=== PATIENT | female | born 2000 | race Caucasian/White ===

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

== ENCOUNTER 2023-08-22 18:33 | Inpatient (IN) | payer MEDICAID, OTHER ==
[2023-08-22] MEDS ORDERED: SODIUM CHLORIDE 0.9% 1,000 ML IV STA (18:54)
[2023-08-22 20:03] LABS: Basophils # (A) 0.1 k/uL (0-0.2); Basophils % (A) 1 %; Eosinophils # (A) 0.1 k/uL (0-0.7); Eosinophils % (A) 1 %; HCT 43.7 % (34.0-46.0); HGB 15.1 gm/dL (11.4-16.0); Lymphocytes # (A) 2.2 k/uL (1.0-4.8); Lymphocytes % (A) 22 %; MCH 32.3 pg (25.0-35.0); MCHC 34.6 g/dL (31.0-37.0); MCV 93.3 fL (80.0-100.0); Monocytes # (A) 0.6 k/uL (0-1.0); Monocytes % (A) 6 %; Neutrophils # (A) 6.7 k/uL (1.3-7.7); Neutrophils % (A) 68 %; Platelet Count 265 k/uL (150-450); RBC 4.69 m/uL (3.80-5.40); RDW 11.9 % (11.5-15.5); WBC 9.9 k/uL (3.8-10.6)
[2023-08-22 20:06] LABS: Appearance,Urine Cloudy (Clear); Bacteria,Urine Rare /hpf; Bilirubin,Urine Negative (Negative); Blood,Urine Negative (Negative); Color,Urine Light Yellow; Glucose,Urine (UA) Negative (Negative); Ketones,Urine Negative (Negative); Leukocyte Esterase,Urine Negative (Negative); Mucus,Urine Few /hpf; Nitrite,Urine Negative (Negative); Protein,Urine Trace (Negative); RBC,Urine 1 /hpf (0-5); Specific Gravity,Urine 1.025 (1.001-1.035); Squamous Epithelial Cell,Urine 13 /hpf (0-4); Urobilinogen,Urine <2.0 mg/dL (<2.0); WBC,Urine 2 /hpf (0-5)
[2023-08-22 20:16] LABS: Amphetamine Screen,Urine Not Detected (NotDetected); Barbiturate Screen,Urine Not Detected (NotDetected); Benzodiazepines Screen,Urine Not Detected (NotDetected); Cocaine Screen,Urine Not Detected (NotDetected); Methadone Screen, Urine Not Detected (NotDetected); Opiate Screen,Urine Not Detected (NotDetected); Oxycodone Screen, Urine Not Detected (NotDetected); Phencyclidine Screen,Urine Not Detected (NotDetected); Tricyclic Antidepressant,Urine Not Detected (NotDetected); Urn Cannabinoid Scrn Detected (NotDetected)
[2023-08-22 20:18] LABS: ALT 13 U/L (4-34); AST 18 U/L (14-36); Acetaminophen <10.0 ug/mL; African American GFR (CKD) >90 (>60 ml/min/1.73 sqM); Albumin 4.4 g/dL (3.5-5.0); Alcohol <10 mg/dL; Alkaline Phosphatase 55 U/L (38-126); Anion Gap 10 mmol/L; Blood Urea Nitrogen 18 mg/dL (7-17); Calcium 9.3 mg/dL (8.4-10.2); Carbon Dioxide 25 mmol/L (22-30); Chloride 105 mmol/L (98-107); Glucose 82 mg/dL (74-99); Lithium 0.5 mmol/L; Non-African American GFR(CKD) 90 (>60 ml/min/1.73 sqM); Potassium 3.8 mmol/L (3.5-5.1); Salicylate <1.0 mg/dL; Sodium 140 mmol/L (137-145); Total Bilirubin 0.9 mg/dL (0.2-1.3); Total Protein 7.1 g/dL (6.3-8.2)
--- NOTE | 2023-08-22 20:18 | ED ---
Overdose HPI - General Source: patient Mode of arrival: ambulatory Limitations: no limitations <Rosaura Zamorano - Last Filed: 08/22/23 20:47> <Adrian Ballesteros - Last Filed: 08/23/23 15:17> - General Chief Complaint: Overdose Stated Complaint: Overdose/mental health Time Seen by Provider: 08/22/23 18:53 - History of Present Illness Initial Comments: 23-year-old female who identifies as a male presents to the emergency department after overdose on Abilify, lithium and Effexor. Patient states that at 6 PM this evening he took 8-10 tablets of Abilify 10 mg, around 15-20 tablets of lithium 300 mg and 15 tablets of Effexor XR 75 mg. Patient these medications in an attempt to harm himself. Admits to previous history of attempt with hospitalization. Reports that they have not taken their lithium as directed o brissa the past month and therefore has excess bottles of it at home. These medications are prescribed to him. He denies any drug or alcohol abuse. No concern for . No other alleviating, precipitating or modifying factors (Rosaura Zamorano) - Related Data Home Medications Medication Instructions Recorded Confirmed ARIPiprazole [Abilify] 10 mg PO DAILY 08/22/23 08/22/23 [place] Carbonate 600 mg PO HS 08/22/23 08/22/23 Testosterone [Androgel 1.62%] 2 pump TRANSDERM DAILY 08/22/23 08/22/23 Venlafaxine HCl [Effexor XR] 75 mg PO DAILY 08/22/23 08/22/23 Allergies Allergy/AdvReac Type Severity Reaction Status Date / Time banana Allergy Anaphylaxis Verified 08/22/23 18:46 grass pollen Allergy sneezing Verified 08/22/23 18:46 mustard Allergy Anaphylaxis Verified 08/22/23 18:46 Review of Systems ROS Other: All systems not noted in ROS Statement are negative. <Rosaura Zamorano - Last Filed: 08/22/23 20:47> ROS Other: All systems not noted in ROS Statement are negative. <Adrian Ballesteros - Last Filed: 08/23/23 15:17> ROS Statement: Those systems with pertinent positive or pertinent negative responses have been documented in the HPI. Past Medical History Past Medical History: Seizure Disorder Additional Past Medical History / Comment(s): Bipolar. Obstetric history: First was a spontaneous . This is her second . Blood type A+, antibodies negative, HIV nonreactive, rubella immune, RPR nonreactive. Hepatitis B negative, negative quad screen, negative toxoplasmosis. History of Any Multi-Drug Resistant Organisms: None Reported Past Surgical History: No Surgical Hx Reported Past Anesthesia/Blood Transfusion Reactions: No Reported Reaction Past Psychological History: ADD/ADHD, Anxiety, Bipolar Smoking Status: Never smoker Past Alcohol Use History: None Reported Past Drug Use History: Marijuana - Past Family History Mother Family Medical History: No Reported History <JaunRosaura Nadiya - Last Filed: 08/22/23 20:47> General Exam Limitations: no limitations General appearance: alert, in no apparent distress Head exam: Present: atraumatic, normocephalic, normal inspection Eye exam: Present: normal appearance, PERRL, EOMI. Absent: scleral icterus, conjunctival injection, periorbital swelling ENT exam: Present: normal exam, mucous membranes moist Neck exam: Present: normal inspection. Absent: tenderness, meningismus, lymphadenopathy Respiratory exam: Present: normal lung sounds bilaterally. Absent: respiratory distress, wheezes, rales, rhonchi, stridor Cardiovascular Exam: Present: regular rate, normal rhythm, normal heart sounds. Absent: systolic murmur, diastolic murmur, rubs, gallop, clicks GI/Abdominal exam: Present: soft, normal bowel sounds. Absent: distended, tenderness, guarding, rebound, rigid Extremities exam: Present: normal inspection, full ROM, normal capillary refill. Absent: tenderness, pedal edema, joint swelling, calf tenderness Back exam: Present: normal inspection Neurological exam: Present: alert, oriented X3, CN II-XII intact Psychiatric exam: Present: suicidal ideation Skin exam: Present: warm, dry, intact, normal color. Absent: rash <Rosaura Zamorano - Last Filed: 08/22/23 20:47> Course Vital Signs 08/22/23 08/22/23 08/23/23 18:42 22:31 01:00 Temperature 99.0 F Pulse Rate 100 98 76 Respiratory 18 18 Rate Blood Pressure 122/74 132/85 O2 Sat by Pulse 99 98 Oximetry 08/23/23 08/23/23 04:00 08:31 Temperature 98 F Pulse Rate 93 68 Respiratory 18 16 Rate Blood Pressure 118/75 105/70 O2 Sat by Pulse 99 98 Oximetry Medical Decision Making - Lab Data Result diagrams: 08/22/23 19:29 08/22/23 19:29 <JaunRosaura Nadiya - Last Filed: 08/22/23 20:47> - Lab Data Result diagrams: 08/22/23 19:29 08/22/23 19:29 <Adrian Ballesteros - Last Filed: 08/23/23 15:17> - Medical Decision Making Was pt. sent in by a medical professional or institution (, OZIEL, MAIL SUPERINTENDENT, urgent care, hospital, or detention...) When possible be specific @ -No Did you speak to anyone other than the patient for history (EMS, parent, family, police, friend...)? What history was obtained from this source @ -No Did you review nursing and triage notes (agree or disagree)? Why? @ -I reviewed and agree with nursing and triage notes Were old charts reviewed (outside hosp., previous admission, EMS record, old EKG, old radiological studies, urgent care reports/EKG's, detention records)? Report findings @ -No old charts were reviewed Differential Diagnosis (chest pain, altered mental status, abdominal pain women, abdominal pain men, vaginal bleeding, weakness, fever, dyspnea, syncope, headache, dizziness, GI bleed, back pain, seizure, CVA, palpatations, mental health, musculoskeletal)? @ -not applicable EKG interpreted by me (3pts min.). @ -Yes and demonstrates sinus rhythm with a rate of 84. CO interval 160. QRS 98. QTC 390. No acute ST segment elevations or depressions X-rays interpreted by me (1pt min.). @ -None done CT interpreted by me (1pt min.). @ -None done U/S interpreted by me (1pt. min.). @ -None done What testing was considered but not performed or refused? (CT, X-rays, U/S, labs)? Why? @ -None What meds were considered but not given or refused? Why? @ -None Did you discuss the management of the patient with other professionals (professionals i.e. , OZIEL, MAIL SUPERINTENDENT, lab, RT, psych nurse, social media campaign manager, housekeeping/laundry supervisor, teacher, development officer, protective services case worker)? Give summary @ -No Was smoking cessation discussed for >3mins.? @ -No Was critical care preformed (if so, how long)? @ -No Were there social determinants of health that impacted care today? How? (Homelessness, low income, unemployed, alcoholism, drug addiction, transportation, low edu. Level, literacy, decrease access to med. care, alf, rehab)? @ -No Was there de-escalation of care discussed even if they declined (Discuss DNR or withdrawal of care, Hospice)? DNR status @ -No What co-morbidities impacted this encounter? (DM, HTN, Smoking, COPD, CAD, Cancer, CVA, ARF, Chemo, Hep., AIDS, mental health diagnosis, sleep apnea, morbid obesity)? @ -None Was patient admitted / discharged? Hospital course, mention meds given and route, prescriptions, significant lab abnormalities, going to OR and other pertinent info. @ -Upon arrival patient is placed into room 14. A thorough history and physical exam was performed. IV is established and laboratory studies were conducted. [place] level is 0.5. Poison control does recommend repeat lithium level in 4 hours. This will be conducted at 1 AM. If lithium level is supratherapeutic on the patient will require further medical care. If level is within normal limits the patient may be medically cleared Undiagnosed new problem with uncertain prognosis? @ -No Drug Therapy requiring intensive monitoring for toxicity (Heparin, Nitro, Insuli n, Cardizem)? @ -No Were any procedures done? @ -No Diagnosis/symptom? @ -default Acute, or Chronic, or Acute on Chronic? @ -default Uncomplicated (without systemic symptoms) or Complicated (systemic symptoms)? @ -default Side effects of treatment? @ -No Exacerbation, Progression, or Severe Exacerbation? @ -No Poses a threat to life or bodily function? How? (Chest pain, [place], [place], pneumonia, PE, COPD, DKA, ARF, appy, cholecystitis, CVA, Diverticulitis, Homicidal, Suicidal, threat to staff... and all critical care pts) @ -No (Rosaura Zamorano) Was patient admitted / discharged? Hospital course, mention meds given and route, prescriptions, significant lab abnormalities, going to OR and other pertinent info. @ -Patient was signed out to me I will back in the room and reevaluated the patient and patient did state he was trying to kill himself and I did fill out a clinical certification after the psychiatric nurse filled out a petition Undiagnosed new problem with uncertain prognosis? @ -No Drug Therapy requiring intensive monitoring for toxicity (Heparin, Nitro, Insulin, Cardizem)? @ -No Were any procedures done? @ -No Diagnosis/symptom? @ -Depression Acute, or Chronic, or Acute on Chronic? @ -Acute Uncomplicated (without systemic symptoms) or Complicated (systemic symptoms)? @ -Complicated Side effects of treatment? @ -No Exacerbation, Progression, or Severe Exacerbation? @ -No Poses a threat to life or bodily function? How? (Chest pain, [place], [place], pneumonia, PE, COPD, DKA, ARF, appy, cholecystitis, CVA, Diverticulitis, Homicidal, Suicidal, threat staff... and all critical care pts) @ -Yes this completes his suicide Diagnosis/symptom? @ -Suicidal attempt Acute, or Chronic, or Acute on Chronic? @ -Acute Uncomplicated (without systemic symptoms) or Complicated (systemic symptoms)? @ -Complicated Side effects of treatment? @ -none Exacerbation, Progression, or Severe Exacerbation] @ -no Poses a threat to life or bodily function? @ -Yes this could lead to (Adrian Ballesteros) - Lab Data Lab Results 08/22/23 08/22/23 08/22/23 Range/Units 19:29 19:29 19:32 WBC 9.9 (3.8-10.6) k/uL RBC 4.69 (3.80-5.40) m/uL Hgb 15.1 (11.4-16.0) gm/dL Hct 43.7 (34.0-46.0) % MCV 93.3 (80.0-100.0) fL MCH 32.3 (25.0-35.0) pg MCHC 34.6 (31.0-37.0) g/dL RDW 11.9 (11.5-15.5) % Plt Count 265 (150-450) k/uL MPV 8.0 Neutrophils % 68 % Lymphocytes % 22 % Monocytes % 6 % Eosinophils % 1 % Basophils % 1 % Neutrophils # 6.7 (1.3-7.7) k/uL Lymphocytes # 2.2 (1.0-4.8) k/uL Monocytes # 0.6 (0-1.0) k/uL Eosinophils # 0.1 (0-0.7) k/uL Basophils # 0.1 (0-0.2) k/uL Sodium 140 (137-145) mmol/L Potassium 3.8 (3.5-5.1) mmol/L Chloride 105 (98-107) mmol/L Carbon Dioxide 25 (22-30) mmol/L Anion Gap 10 mmol/L BUN 18 H (7-17) mg/dL Creatinine 0.91 (0.52-1.04) mg/dL Est GFR (CKD-EPI)AfAm >90 (>60 ml/min/1.73 sqM) Est GFR (CKD-EPI)NonAf 90 (>60 ml/min/1.73 sqM) Glucose 82 (74-99) mg/dL Calcium 9.3 (8.4-10.2) mg/dL Total Bilirubin 0.9 (0.2-1.3) mg/dL AST 18 (14-36) U/L ALT 13 (4-34) U/L Alkaline Phosphatase 55 (38-126) U/L Total Protein 7.1 (6.3-8.2) g/dL Albumin 4.4 (3.5-5.0) g/dL Urine Color Light Yellow Urine Appearance Cloudy H (Clear) Urine pH 6.0 (5.0-8.0) Ur Specific [place] 1.025 (1.001-1.035) Urine Protein Trace H (Negative) Urine Glucose (UA) Negative (Negative) Urine Ketones Negative (Negative) Urine Blood Negative (Negative) Urine Nitrite Negative (Negative) Urine Bilirubin Negative (Negative) Urine Urobilinogen <2.0 (<2.0) mg/dL Ur Leukocyte Esterase Negative (Negative) Urine RBC 1 (0-5) /hpf Urine WBC 2 (0-5) /hpf Ur Squamous Epith Cells 13 H (0-4) /hpf Urine Bacteria Rare H (None) /hpf Urine Mucus Few H (None) /hpf Urine HCG, Qual (Not Detectd) Salicylates <1.0 mg/dL Urine Opiates Screen Not Detected (NotDetected) Ur Oxycodone Screen Not Detected (NotDetected) Urine Methadone Screen Not Detected (NotDetected) Acetaminophen <10.0 ug/mL Ur Barbiturates Screen Not Detected (NotDetected) U Tricyclic Antidepress Not Detected (NotDetected) Ur Phencyclidine Scrn Not Detected (NotDetected) Ur Amphetamines Screen Not Detected (NotDetected) U Methamphetamines Scrn Not Detected (NotDetected) U Benzodiazepines Scrn Not Detected (NotDetected) [place] 0.5 mmol/L Urine Cocaine Screen Not Detected (NotDetected) U Marijuana (THC) Screen Detected H (NotDetected) Serum Alcohol <10 mg/dL 08/22/23 08/23/23 08/23/23 Range/Units 19:32 00:25 08:28 WBC (3.8-10.6) k/uL RBC (3.80-5.40) m/uL Hgb (11.4-16.0) gm/dL Hct (34.0-46.0) % MCV (80.0-100.0) fL MCH (25.0-35.0) pg MCHC (31.0-37.0) g/dL RDW (11.5-15.5) % Plt Count (150-450) k/uL MPV Neutrophils % % Lymphocytes % % Monocytes % % Eosinophils % % Basophils % % Neutrophils # (1.3-7.7) k/uL Lymphocytes # (1.0-4.8) k/uL Monocytes # (0-1.0) k/uL Eosinophils # (0-0.7) k/uL Basophils # (0-0.2) k/uL Sodium (137-145) mmol/L Potassium (3.5-5.1) mmol/L Chloride (98-107) mmol/L Carbon Dioxide (22-30) mmol/L Anion Gap mmol/L BUN (7-17) mg/dL Creatinine (0.52-1.04) mg/dL Est GFR (CKD-EPI)AfAm (>60 ml/min/1.73 sqM) Est GFR (CKD-EPI)NonAf (>60 ml/min/1.73 sqM) Glucose (74-99) mg/dL Calcium (8.4-10.2) mg/dL Total Bilirubin (0.2-1.3) mg/dL AST (14-36) U/L ALT (4-34) U/L Alkaline Phosphatase (38-126) U/L Total Protein (6.3-8.2) g/dL Albumin (3.5-5.0) g/dL Urine Color Urine Appearance (Clear) Urine pH (5.0-8.0) Ur Specific [place] (1.001-1.035) Urine Protein (Negative) Urine Glucose (UA) (Negative) Urine Ketones (Negative) Urine Blood (Negative) Urine Nitrite (Negative) Urine Bilirubin (Negative) Urine Urobilinogen (<2.0) mg/dL Ur Leukocyte Esterase (Negative) Urine RBC (0-5) /hpf Urine WBC (0-5) /hpf Ur Squamous Epith Cells (0-4) /hpf Urine Bacteria (None) /hpf Urine Mucus (None) /hpf Urine HCG, Qual Not Detected (Not Detectd) Salicylates mg/dL Urine Opiates Screen (NotDetected) Ur Oxycodone Screen (NotDetected) Urine Methadone Screen (NotDetected) Acetaminophen ug/mL Ur Barbiturates Screen (NotDetected) U Tricyclic Antidepress (NotDetected) Ur Phencyclidine Scrn (NotDetected) Ur Amphetamines Screen (NotDetected) U Methamphetamines Scrn (NotDetected) U Benzodiazepines Scrn (NotDetected) [place] 1.5 0.8 mmol/L Urine Cocaine Screen (NotDetected) U Marijuana (THC) Screen (NotDetected) Serum Alcohol mg/dL Disposition <Rosaura Zamorano - Last Filed: 08/22/23 20:47> Time of Disposition: 15:16 <Adrian Ballesteros - Last Filed: 08/23/23 15:17> Clinical Impression: Suicide attempt, Depression Disposition: TRANSFER TO PSYCH HOSP/UNIT Referrals: Aixa Martinez MD [Primary Care Provider] - 1-2 days
[2023-08-22] MEDS ORDERED: ONDANSETRON 4 MG/2 ML VIAL IVP STA (20:28)
[2023-08-22] MEDS ORDERED: SODIUM CHLORIDE 0.9% 1,000 ML IV ONE (20:34)
[2023-08-22] MEDS: SODIUM CHLORIDE 0.9% 1,000 ML IV SCH (21:18)
[2023-08-23] MEDS: SODIUM CHLORIDE 0.9% 1,000 ML IV SCH ×3 (01:47→11:48)
[2023-08-24] MEDS ORDERED: MAG HYDROX/AL HYDROX/SIMETH 30 ML CUP PO PRN (15:13)
[2023-08-24] MEDS ORDERED: haloperidoL 5 MG TAB PO PRN (15:13)
[2023-08-24] MEDS ORDERED: LORazepam 2 MG/ML INJ IM PRN (15:13)
[2023-08-24] MEDS ORDERED: MAGNESIUM HYDROXIDE 2,400 MG/30 ML CUP PO PRN (15:13)
[2023-08-24] MEDS ORDERED: ACETAMINOPHEN TAB 325 MG TAB PO PRN (15:13)
[2023-08-24] MEDS ORDERED: IBUPROFEN 600 MG TAB PO PRN (15:13)
[2023-08-24] MEDS ORDERED: HALOPERIDOL LACTATE 5 MG/ML 1 ML VIAL IM PRN (15:13)
[2023-08-24] MEDS ORDERED: LORazepam 1 MG TAB PO PRN (15:13)
[2023-08-24] MEDS: ARIPiprazole 10 MG TAB PO SCH (22:22)
[2023-08-24] MEDS: LITHIUM CARBONATE 300 MG CAP PO SCH (22:23)
[2023-08-25] MEDS: NON FORMULARY DRUG (Testosterone [Androgel 1.62%] 75 GM Gel.Md.Pmp) TRANSDERM SCH (08:54)
[2023-08-25] MEDS: VENLAFAXINE HCL ER 75 MG CAP PO SCH (08:54)
[2023-08-25] MEDS ORDERED: ARIPiprazole 10 MG TAB PO SCH (09:00)
--- NOTE | 2023-08-25 12:02 | P.MDCNMH ---
History of Present Illness H&P Date: 08/25/23 Chief Complaint: Overdose, suicidal ideation * 23-year-old patient who identifies as a male presents to the emergency department after overdose. Patient overdosed on medications including lithium, Effexor, Abilify. Patient was monitored in the emergency department and poison control was called. Serial blood work was obtained including lithium levels which continued to remain subtherapeutic, salicylate, acetaminophen levels within normal limits urine drug screen was positive for marijuana. Patient tested negative for Covid * Blood work obtained in ED include CBC which was essentially negative serum chemistry was essentially normal except BUNs of 18. Urinalysis obtained showed cloudy urine excessive squamous epithelial cells noted probably contaminated sample * Patient seen in [facility] unit, Max is doing well denies of any acute issues REVIEW OF SYSTEMS: CONSTITUTIONAL: No fever, no malaise, no fatigue. HEENT: No recent visual problems or hearing problems. Denied any sore throat. CARDIOVASCULAR: No chest pain, orthopnea, PND, no palpitations, no syncope. PULMONARY: No shortness of breath, no cough, no hemoptysis. GASTROINTESTINAL: No diarrhea, no nausea, no vomiting, no abdominal pain. NEUROLOGICAL: No headaches, no weakness, no numbness. HEMATOLOGICAL: Denies any bleeding or petechiae. GENITOURINARY: Denies any burning micturition, frequency, or urgency. MUSCULOSKELETAL/RHEUMATOLOGICAL: Denies any joint pain, swelling, or any muscle pain. ENDOCRINE: Denies any polyuria or polydipsia. PHYSICAL EXAMINATION: GENERAL: The patient is alert and oriented x3, not in any acute distress. Well developed, well nourished. HEENT: Pupils are round and equally reacting to light. EOMI Normocephalic, atraumatic. No pharyngeal erythema. No thyromegaly. CARDIOVASCULAR: S1 and S2 present. No murmurs, rubs, or gallops. PULMONARY: Chest is clear to auscultation, no wheezing or crackles. ABDOMEN: Soft, nontender, nondistended, normoactive bowel sounds. No palpable organomegaly. MUSCULOSKELETAL: No joint swelling or deformity. EXTREMITIES: No cyanosis, clubbing, or pedal edema. NEUROLOGICAL: Gross neurological examination did not reveal any focal deficits. SKIN: No rashes. Past Medical History Past Medical History: Seizure Disorder Additional Past Medical History / Comment(s): Bipolar. Obstetric history: First was a spontaneous . Blood type A+, antibodies negative, HIV nonreactive, rubella immune, RPR nonreactive. Hepatitis B negative, negative quad screen, negative toxoplasmosis. History of Any Multi-Drug Resistant Organisms: None Reported Past Surgical History: No Surgical Hx Reported Past Anesthesia/Blood Transfusion Reactions: No Reported Reaction Past Psychological History: ADD/ADHD, Anxiety, Bipolar Smoking Status: Never smoker Past Alcohol Use History: None Reported Past Drug Use History: Marijuana - Past Family History Mother Family Medical History: No Reported History Medications and Allergies Home Medications Medication Instructions Recorded Confirmed Type ARIPiprazole [Abilify] 10 mg PO DAILY 08/22/23 08/22/23 History [place] Carbonate 600 mg PO HS 08/22/23 08/22/23 History Testosterone [Androgel 1.62%] 2 pump TRANSDERM DAILY 08/22/23 08/22/23 History Venlafaxine HCl [Effexor XR] 75 mg PO DAILY 08/22/23 08/22/23 History Allergies Allergy/AdvReac Type Severity Reaction Status Date / Time banana Allergy Anaphylaxis Verified 08/22/23 18:46 grass pollen Allergy sneezing Verified 08/22/23 18:46 mustard Allergy Anaphylaxis Verified 08/22/23 18:46 Physical Exam Vitals: Vital Signs Temp Pulse Resp BP Pulse Ox 08/25/23 07:09 97.8 F 73 14 98/55 99 08/24/23 15:30 97.7 F 71 16 124/64 Intake and Output 08/24/23 08/25/23 08/25/23 22:59 06:59 14:59 Other: Weight 58.712 kg Cranial Nerve Examination - Cranial Nerves Cranial Nerve I- Olfactory: Intact Cranial Nerve II- Optic: Intact Cranial Nerve III- Oculomotor: Intact Cranial Nerve IV- Trochlear: Intact Cranial Nerve V- Trigeminal: Intact Cranial Nerve - Abducens: Intact Cranial Nerve VII- Facial: Intact Cranial Nerve VIII- Auditory: Intact Cranial Nerve IX- Glossopharyngeal: Intact Cranial Nerve X- Vagus: Intact Cranial Nerve XI- Accessory: Intact Cranial Nerve XII- Hypoglossal: Intact Results CBC & Chem 7: 08/22/23 19:29 08/22/23 19:29 Assessment and Plan Assessment: Assessment and plan * Depressed mood with suicidal ideation * History of bipolar disorder * History of anxiety and depression * Overdose on multiple medications including Abilify, lithium, Effexor * In regards to suicidal/depressed most continue maximal safety precaution in behavioral health unit. Blood work reviewed remained stable * In regards to history of anxiety/depression/bipolar defer management to psychiatry * Encourage USE oral intake while in behavioral health unit * EKG obtained on 08/22/23 shows sinus rhythm QTC of 390 Time with Patient: Greater than 30
--- NOTE | 2023-08-25 16:16 | P.HP ---
Psychiatric H&P - . H&P Date: 08/25/23 History & Physical: Allergies Allergy/AdvReac Type Severity Reaction Status Date / Time banana Allergy Anaphylaxis Verified 08/22/23 18:46 grass pollen Allergy sneezing Verified 08/22/23 18:46 mustard Allergy Anaphylaxis Verified 08/22/23 18:46 Vital Signs Temp 97.8 F 08/25/23 07:09 Pulse 73 08/25/23 07:09 Resp 14 08/25/23 07:09 BP 98/55 08/25/23 07:09 Pulse Ox 99 08/25/23 07:09 FiO2 Intake & Output 08/24/23 08/25/23 08/25/23 18:59 06:59 18:59 Weight 58.712 kg Laboratory Last Values WBC 9.9 k/uL (3.8-10.6) 08/22/23 19:29 RBC 4.69 m/uL (3.80-5.40) 08/22/23 19:29 Hgb 15.1 gm/dL (11.4-16.0) 08/22/23 19:29 Hct 43.7 % (34.0-46.0) 08/22/23 19: MCV 93.3 fL (80.0-100.0) 08/22/23 19:29 MCH 32.3 pg (25.0-35.0) 08/22/23 19:29 MCHC 34.6 g/dL (31.0-37.0) 08/22/23 19:29 RDW 11.9 % (11.5-15.5) 08/22/23 19:29 Plt Count 265 k/uL (150-450) 08/22/23 19:29 MPV 8.0 08/22/23 19:29 Neutrophils % 68 % 08/22/23 19: Lymphocytes % 22 % 08/22/23 19: Monocytes % 6 % 08/22/23 19: Eosinophils % 1 % 08/22/23 19: Basophils % 1 % 08/22/23 19:29 Neutrophils # 6.7 k/uL (1.3-7.7) 08/22/23 19: Lymphocytes # 2.2 k/uL (1.0-4.8) 08/22/23 19: Monocytes # 0.6 k/uL (0-1.0) 08/22/23 19: Eosinophils # 0.1 k/uL (0-0.7) 08/22/23 19: Basophils # 0.1 k/uL (0-0.2) 08/22/23 19:29 Sodium 140 mmol/L (137-145) 08/22/23 19:29 Potassium 3.8 mmol/L (3.5-5.1) 08/22/23 19: Chloride 105 mmol/L (98-107) 08/22/23 19:29 Carbon Dioxide 25 mmol/L (22-30) 08/22/23 19:29 Anion Gap 10 mmol/L 08/22/23 19:29 BUN 18 mg/dL (7-17) H 08/22/23 19: Creatinine 0.91 mg/dL (0.52-1.04) 08/22/23 19:29 Est GFR (CKD-EPI)AfAm >90 (>60 ml/min/1.73 sqM) 08/22/23 19: Est GFR (CKD-EPI)NonAf 90 (>60 ml/min/1.73 sqM) 08/22/23 19:29 Glucose 82 mg/dL (74-99) 08/22/23 19:[address] Glu mg/dL 85 mg/dL 08/25/23 10:47 Hemoglobin A1c 4.6 % (<=6.0) 08/25/23 10:47 Calcium 9.3 mg/dL (8.4-10.2) 08/22/23 19: Total Bilirubin 0.9 mg/dL (0.2-1.3) 08/22/23 19:29 AST 18 U/L (14-36) 08/22/23 19: ALT 13 U/L (4-34) 08/22/23 19:29 Alkaline Phosphatase 55 U/L (38-126) 08/22/23 19:29 Total Protein 7.1 g/dL (6.3-8.2) 08/22/23 19:29 Albumin 4.4 g/dL (3.5-5.0) 08/22/23 19: TSH 3.630 mIU/L (0.465-4.680) 08/25/23 10:47 Urine Color Light Yellow 08/22/23: Urine Appearance Cloudy (Clear) H 08/22/23 19: Urine pH 6.0 (5.0-8.0) 08/22/23: Ur Specific [place] 1.025 (1.001-1.035) 08/22/23: Urine Protein Trace (Negative) H 08/22/23 19: Urine Glucose (UA) Negative (Negative) 08/22/23: Urine Ketones Negative (Negative) 08/22/23: Urine Blood Negative (Negative) 08/22/23: Urine Nitrite Negative (Negative) 08/22/23: Urine Bilirubin Negative (Negative) 08/22/23: Urine Urobilinogen <2.0 mg/dL (<2.0) 08/22/23: Ur Leukocyte Esterase Negative (Negative) 08/22/23: Urine RBC 1 /hpf (0-5) 08/22/23: Urine WBC 2 /hpf (0-5) 08/22/23: Ur Squamous Epith Cells 13 /hpf (0-4) H 08/22/23: Urine Bacteria Rare /hpf (None) H 08/22/23: Urine Mucus Few /hpf (None) H 08/22/23 19: Urine HCG, Qual Not Detected (Not Detectd) 08/22/23: Salicylates <1.0 mg/dL 08/22/23 19:29 Urine Opiates Screen Not Detected (NotDetected) 08/22/23: Ur Oxycodone Screen Not Detected (NotDetected) 08/22/23: Urine Methadone Screen Not Detected (NotDetected) 08/22/23: Acetaminophen <10.0 ug/mL 08/22/23 19: Ur Barbiturates Screen Not Detected (NotDetected) 08/22/23: U Tricyclic Antidepress Not Detected (NotDetected) 08/22/23: Ur Phencyclidine Scrn Not Detected (NotDetected) 08/22/23 19: Ur Amphetamines Screen Not Detected (NotDetected) 08/22/23: U Methamphetamines Scrn Not Detected (NotDetected) 08/22/23 19:32 U Benzodiazepines Scrn Not Detected (NotDetected) 08/22/23 19:32 [place] 0.8 mmol/L 08/23/23 08:28 Urine Cocaine Screen Not Detected (NotDetected) 08/22/23 19:32 U Marijuana (THC) Screen Detected (NotDetected) H 08/22/23 19:32 Serum Alcohol <10 mg/dL 08/22/23 19:29 SARS-CoV-2 (PCR) Not Detected (Not Detectd) 08/23/23 18:27 08/25/23 16:07 This is a psychiatric assessment on Loulou Grant was a 23-year-old transgender female to male and was hospitalized of her patient had tried to overdose on several of her home medications that includes Effexor or lithium carbonate and Abilify new line following is an abstract from the assessment done in the ER 23-year-old patient who identifies as a male presents to the emergency department after overdose. Patient overdosed on medications including lithium, Effexor, Abilify. Patient was monitored in the emergency department and poison control was called. Serial blood work was obtained including lithium levels which continued to remain subtherapeutic, salicylate, acetaminophen levels within normal limits urine drug screen was positive for marijuana. Patient tested negative for Covid Blood work obtained in ED include CBC which was essentially negative serum chemistry was essentially normal except BUNs of 18. 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 she also reports that she is currently in hormone treatment and eventually wants to have upper body surgery patient also has a son age 33 years old and became concerned about taking care of them financially the job our cuts new line Past history personal and social history patient reports chronic issues with mood swings and anxiety she says that she is been in treatment for many years she also states that she has a history of burning herself and that she started to do that again in the last three months which also reports cannabis use daily since age 17 [facility] reports intermittent binge drinking also Mental Status: Reveals a PATIENT who currently appears in no acute physical distress speech was appropriate Thought processes are goal-directed sequential logical Appropriate rate and rhythm Thought content reveals low self-esteem and confidence with feelings of helplessness and hopelessness and suicidal ideations Patient does not acknowledge any perceptual distortions or any auditory or visual hallucinations Patient's formal operational judgment and insight appears to be impaired Problem solving ability appears to be impaired Patient admits to feeling helpless or hopeless and admits to suicidal ideationsBut no current plans Diagnostic impression: adjustment disorder with mixed emotional features bipolar disorder depressed type chronic with acute exacerbation [facility] personality disorder with borderline traits cannabis use disorder unspecified alcohol use disorder unspecified Plan: the patient will be hospital is on the unit for further evaluation and treatment therapy will be focused on providing supportive care improving his coping abilities through the multi-model treatment [facility] patient will also participate in on the water activities individual milieu group or TRT PT and pharmacotherapy approximate length of stay would be 7 to 10 days patient has signed voluntarily social media strategist for placement concerns and other referrals Staff will continue to encourage the patient to participate in all the what [facility] social media strategist for appropriate discharge planning and recommendations for follow-up and referrals restart the whole medications there appears to be no concern for lithium toxicity levels were already subtherapeutic at the time of admission The following note is dictated with the Tyto dictation system and may contain some mistakes and grammatical errors every attempt has been made to correct the note but may still escape scrutiny
[2023-08-25] MEDS: BENZOCAINE 20 % GEL 11.9 GM TUBE MM PRN (17:24)
[2023-08-25 20:00] LABS: Chol/HDL Ratio 2.35 Ratio; LDL Cholesterol,Calculated 72.3 mg/dL (0.0-131.0); VLDL Calculation 17.28 mg/dL (5.00-40.00)
[2023-08-25] MEDS: ARIPiprazole 10 MG TAB PO SCH (21:06)
[2023-08-25] MEDS: LITHIUM CARBONATE 300 MG CAP PO SCH (21:06)
[2023-08-26] MEDS: VENLAFAXINE HCL ER 75 MG CAP PO SCH (08:48)
[2023-08-26] MEDS: NON FORMULARY DRUG (Testosterone [Androgel 1.62%] 75 GM Gel.Md.Pmp) TRANSDERM SCH (08:48)
[2023-08-26] MEDS: BENZOCAINE 20 % GEL 11.9 GM TUBE MM PRN ×2 (15:15→20:31)
--- NOTE | 2023-08-26 15:27 | P.PN ---
Subjective Progress Note Date: 08/26/23 08/26/22 Subjective data: The patient was seen chart was reviewed in case discussed with the nursing staff the patient reports that she is feeling much better and that he has resolved the issues and concerns he states that he is feeling happy and in control patient however agreed that he has a tendency for quick fluctuations in his moods and expectations into his borderline personality he states that is already enrolled in getting some DBT and CBT treatment we also discussed other modalities including self-help workbooks for the above condition Mental Status: Reveals a PATIENT who currently appears in no acute physical distress speech was appropriate Thought processes are goal-directed sequential logical Appropriate rate and rhythm Thought content reveals low self-esteem and confidence with feelings of helplessness and hopelessness and suicidal ideations Although at this time patient seems to be rationalizing intellectualizing and minimizing Patient does not acknowledge any perceptual distortions or any auditory or visual hallucinations Patient's formal operational judgment and insight appears to be impairedHowever he started to show some understanding of his borderline personality and distortions of thoughts and perceptions Problem solving ability appears to be impaired Patient admits to feeling helpless or hopeless and admits to suicidal ideationsBut no current plans Diagnostic impression: adjustment disorder with mixed emotional features bipolar disorder depressed type chronic with acute exacerbation new line personality disorder with borderline traits cannabis use disorder unspecified alcohol use disorder unspecified Plan: the patient Has been hospitalized on the unit for further evaluation and treatment therapy will be focused on providing supportive care improving his coping abilities through the multi-model treatment [facility] patient will also participate in on the water activities individual milieu group or TRT PT and pharmacotherapy approximate length of stay would be 7 to 10 days patient has signed voluntarily social studies department chair for placement concerns and other referrals Staff will continue to encourage the patient to participate in all the what activities [facility] social studies department chair for appropriate discharge planning and recommendations for follow-up and referrals restart the Home medications That includes Abilify 10 mg at bedtime lithium carbonate 600 mg at bedtime Effexor XR 75 mg daily there appears to be no concern for lithium toxicity levels were already subtherapeutic at the time of admission The following note is dictated with the Zap[employer]ch dictation system and may contain some mistakes and grammatical errors every attempt has been made to correct the note but may still escape scrutiny Karan Austin MD Objective - Vital Signs Vital signs: Vital Signs Temp 97.8 F 08/25/23 07:09 Pulse 72 08/26/23 06:51 Resp 14 08/25/23 07:09 BP 127/68 08/26/23 06:51 Pulse Ox 99 08/25/23 07:09 FiO2 - Labs CBC & Chem 7: 08/22/23 19:29 08/22/23 19:29 Labs: Abnormal Lab Results - Last 24 Hours (Table) 08/25/23 Range/Units 10:47 HDL Cholesterol 66.40 H (40.00-60.00) mg/dL
[2023-08-26] MEDS: LITHIUM CARBONATE 300 MG CAP PO SCH (20:31)
[2023-08-26] MEDS: ARIPiprazole 10 MG TAB PO SCH (20:31)
[2023-08-27] MEDS: VENLAFAXINE HCL ER 75 MG CAP PO SCH (08:36)
[2023-08-27] MEDS: NON FORMULARY DRUG (Testosterone [Androgel 1.62%] 75 GM Gel.Md.Pmp) TRANSDERM SCH (08:36)
[2023-08-27] MEDS ORDERED: traZODone HCL 50 MG TAB PO PRN (12:58)
--- NOTE | 2023-08-27 16:47 | P.PN ---
Progress Note - Text Progress Note Date: 08/27/23 Subjective data: The patient was seen today for psychiatric follow up. patient was endorsing hav ing several stressors at home. financial and related to his son. patient is fairly concrete. logical today. claims she has a diagnosis of BPD. states that the crying spells have been improving. states that he is not sleeping well at night time. claims that his mood is depressed, anxiety are mildly improving. has been goig to groups and interacting with others. he denies any SI or Hi and denies any Ah or VH. has been taking the medications as perscribed and not reporting any side effects. Mental Status: Patient who currently appears in no acute physical distress, short hair. speech was appropriate, fluent. Thought processes are goal-directed sequential logical Appropriate rate and rhythm Thought content feelings of helplessness and hopelessness, not rporting any SI or HI Patient does not acknowledge any perceptual distortions or any auditory or visual hallucinations Patient's formal operational judgment and insight, improvin mildly alert and oriented x3 Diagnostic impression: adjustment disorder with mixed emotional features bipolar disorder r/o borderline personality disorder cannabis use disorder alcohol use disorder Plan: the patient is hospitalized on the unit for further evaluation and treatment, the patient has signed voluntarily social insurance administrator for placement concerns and other referrals Medications: Abilify 10 mg at bedtime for mood stabilization lithium carbonate 600 mg at bedtime for mood stabilization Effexor XR 75 mg daily for mood/anxiety added melatonin 5 mg qhs for sleep added trazodone 50 mg qhs prn for sleep -SW on board for discharge planning. likely discharge back home wednesday if patient continues to improve
[2023-08-27] MEDS ORDERED: MELATONIN 3 MG TABLET PO SCH (21:00)
[2023-08-27] MEDS: LITHIUM CARBONATE 300 MG CAP PO SCH (21:01)
[2023-08-27] MEDS: ARIPiprazole 10 MG TAB PO SCH (21:01)
[2023-08-28] MEDS: VENLAFAXINE HCL ER 75 MG CAP PO SCH (08:31)
[2023-08-28] MEDS: NON FORMULARY DRUG (Testosterone [Androgel 1.62%] 75 GM Gel.Md.Pmp) TRANSDERM SCH (08:32)
[2023-08-28] MEDS: LITHIUM CARBONATE 300 MG CAP PO SCH (20:40)
[2023-08-28] MEDS: ARIPiprazole 10 MG TAB PO SCH (20:40)
--- NOTE | 2023-08-28 22:49 | P.PN ---
Progress Note - Text Progress Note Date: 08/28/23 Interval history: Patient was seen socializing in the [facility] with peers and was directable and agreeable to speak with sign writer hand. He reports mood is still somewhat depressed, reports he has not been sleeping well, feels tired today. He reports not tolerating the melatonin well last and would like it discontinued. We discussed Trazodone for sleep and he agrees to try it. At this time patient denies any suicidal or homicidal ideation, intent or plan. He denies any auditory or visual hallucinations. Patient denies any side effects from the medications, other than the melatonin, and has been compliant with meds. Mental status exam: General Appearance: Patient appears to be stated age, slender, hair dyed purple with asymmetric haircut, facial piercings. Behavior: No agitated behavior. Patient is calm and directable. Speech: Patient's speech is fluent and non-pressured. Mood/Affect: Mood is improving mildly but still somewhat depressed and tired, affect is congruent and constricted. Suicidality/Homicidality: Patient denies having any suicidal or homicidal ideation intent or plan. Perceptions: Patient denies any auditory or visual hallucinations. Though content/process: There is no evidence of any delusional thought content and thought process is linear and goal-directed. Memory and concentration: AOX3, grossly intact for the purposes of this session Judgment and insight: Improving mildly Assessment/Plan: Continue with current diagnosis. Patient continues to meet criteria for inpatient psychiatric admission for symptom stabilization and safety. Discontinue melatonin and start Trazodone 50 mg QHS PRN for sleep. Monitor for medication compliance and for any psychotropic medication side effects. Will continue to monitor ongoing response to treatment. Encouraged participation in milieu.
[2023-08-29] MEDS: NON FORMULARY DRUG (Testosterone [Androgel 1.62%] 75 GM Gel.Md.Pmp) TRANSDERM SCH (08:59)
[2023-08-29] MEDS: VENLAFAXINE HCL ER 75 MG CAP PO SCH (08:59)
[2023-08-29 09:12] VITALS: RESP 16; TEMP 97.4
--- NOTE | 2023-08-29 17:13 | P.PN ---
Progress Note - Text Progress Note Date: 08/29/23 Interval history: Patient was seen talking on the phone and was directable and agreeable to speak with video games storywriter. He reports mood is improved, reports still not been sleeping well and the Trazodone gave him vivid strange dreams last night. We discussed a low dose Seroquel for sleep/mood and he agrees to try it. At this time patient denies any suicidal or homicidal ideation, intent or plan. He denies any auditory or visual hallucinations. Patient denies any side effects from the medications, other than the vivid dreams from Trazodone, and has been compliant with meds. Patient is hoping for discharge tomorrow. Mental status exam: General Appearance: Patient appears to be stated age, slender, hair dyed purple with asymmetric haircut, facial piercings. Behavior: No agitated behavior. Patient is calm and directable. Speech: Patient's speech is fluent and non-pressured. Mood/Affect: Mood is improving, affect is congruent and constricted. Suicidality/Homicidality: Patient denies having any suicidal or homicidal ideation intent or plan. Perceptions: Patient denies any auditory or visual hallucinations. Though content/process: There is no evidence of any delusional thought content and thought process is linear and goal-directed. Memory and concentration: AOX3, grossly intact for the purposes of this session Judgment and insight: Improving mildly Assessment/Plan: Continue with current diagnosis. Patient continues to meet criteria for inpatient psychiatric admission for symptom stabilization and safety. Discontinue Trazodone 50 mg QHS PRN for sleep due to vivid strange dreams. Start Seroquel 25 mg QHS for sleep/mood. Monitor for medication compliance and for any psychotropic medication side effects. Will continue to monitor ongoing response to treatment. Encouraged participation in milieu.
[2023-08-29] MEDS: ARIPiprazole 10 MG TAB PO SCH (20:42)
[2023-08-29] MEDS: LITHIUM CARBONATE 300 MG CAP PO SCH (20:42)
[2023-08-29] MEDS ORDERED: QUEtiapine 25 MG TAB PO SCH (21:00)
[2023-08-30 06:52] VITALS: BP 119/70; PULSE 86
[2023-08-30] MEDS: NON FORMULARY DRUG (Testosterone [Androgel 1.62%] 75 GM Gel.Md.Pmp) TRANSDERM SCH (08:37)
[2023-08-30] MEDS: VENLAFAXINE HCL ER 75 MG CAP PO SCH (08:37)
--- NOTE | 2023-08-30 09:34 | P.DS ---
Providers Date of admission: 08/24/23 15:01 Expected date of discharge: 08/30/23 Attending physician: Reji Castro MD Consults: 08/24/23 15:13 Consult Physician Routine Consulting Provider: Aixa Martinez Consult Reason/Comments: H&P and medical Do you want consulting provider notified?: Yes Primary care physician: Aixa Michelle - Discharge Diagnosis(es) (1) Adjustment disorder with mixed emotional features Current Visit: Yes Status: Acute Priority: High (2) Bipolar disorder Current Visit: Yes Status: Acute Priority: Medium (3) Borderline personality disorder Current Visit: Yes Status: Acute Priority: High (4) Cannabis use disorder Current Visit: Yes Status: Acute Priority: Medium (5) Alcohol use disorder Current Visit: Yes Status: Acute Priority: Medium Hospital Course: Admission HPI: Admission note was completed by Dr Austin "[This is a psychiatric assessment on Loulou Grant was a 23-year-old transgender female to male and was hospitalized of her patient had tried to overdose on several of her home medications that includes Effexor or lithium carbonate and Abilify new line following is an abstract from the assessment done in the ER. 23-year-old patient who identifies as a male presents to the emergency department after overdose. Patient overdosed on medications including lithium, Effexor, Abilify. Patient was monitored in the emergency department and poison control was called. Serial blood work was obtained including lithium levels which continued to remain subtherapeutic, salicylate, acetaminophen levels within normal limits urine drug screen was positive for marijuana. Patient tested negative for Covid Blood work obtained in ED include CBC which was essentially negative serum chemistry was essentially normal except BUNs of 18. 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 Patient got along well with other patients on the unit and followed unit protocol. Patient was compliant with the medications and denied any side effects throughout hospital course. Patient was started on his home dose of Abilify by mouth 10 mg daily at bedtime for mood stabilization, resumed back on lithium 600 mg daily at bedtime for mood stabilization, Effexor XR 75 mg daily for mood/anxiety, melatonin 5 mg daily at bedtime for sleep, started on trazodone daily at bedtime however did not tolerat e well and replaced with Seroquel 25 mg daily at bedtime for sleep/mood stabilization. Patient spoke of [his] stressors and engaged in therapy both group and individual. Patient was also seen by medical team for history and physical exam. [] Throughout the course of the hospitalization patient gradually improved with regards to [mood, anxiety], mood lability, impulsivity, sleep and [returned back to their baseline level of functioning]. On the day of discharge patient denied any suicidal or homicidal ideations intent or plan denied any auditory or visual hallucinations. Patient endorsed wanting to live for his job and his son. The patient denied any access to guns or weapons. Patient denied any paranoia and did not endorse any delusions. Patient does have a significant history of substance abuse [and] was counseled on abstaining from all substances including alcohol and marijuana. [Patient was offered however declined inpatient substance-abuse rehab.] [Patient elected to do outpatient substance use treatment program through [facility].] Patient was also counseled on the medications and need for regular compliance and was encouraged to follow-up with their outpatient appointment for mental health and also for primary care. [Prior to discharge a family meeting will be arranged by social service assistant to answer any questions and ensure safety upon discharge.] Patient will also follow-up at [facility] and be enrolled in DBT program. Mental status exam: General Appearance: Patient appears to be thin, dyed hair, facial piercings, stated age is alert, pleasant, and cooperative. Patient is in no acute distress and has improved hygiene and grooming Behavior: Patient is calmly seated without any agitated behavior. Speech: Patient's speech is fluent and nonpressured. Mood/Affect: Patient reports their mood is "good", affect is congruent and euthymic. Suicidality/Homicidality: Patient denies having any suicidal or homicidal ideation intent or plan. Perceptions: Patient denies any auditory or visual hallucinations. Though content/process: There is no evidence of any delusional thought content and thought process is linear and goal-directed. [more future oriented] Memory and concentration: AOX3, grossly intact for the purposes of this session. Can spell "WORLD" backwards correctly. Judgment and insight: [chronically poor, however has] improved with guarded prognosis Impression: Adjustment disorder with mixed emotional features Bipolar disorder Borderline personality disorder Cannabis use disorder Alcohol use disorder Plan: -Continue with discharge today as patient has improved and stabilized psychiatrically and is not currently an imminent threat to [himself] and/or others. [Patient will remain at chronically elevated risk for harm to self and/or others due to his impulsivity and substance abuse.] -Continue medications: Abilify by mouth 10 mg daily at bedtime for mood stabilization, Seroquel 25 mg daily at bedtime for insomnia/mood stabilization, lithium 600 mg daily at bedtime for mood stabilization, Effexor XR 75 mg daily for mood/anxiety, melatonin 5 mg daily at bedtime for sleep. -Patient was counseled on the need for medication compliance and appropriate follow-up at mental health and also primary care for medical issues. Patient verbalized understanding and agreed. -Social work to [arrange for and conduct family meeting to ensure safety upon discharge and answer any questions/concerns.] Social work also to arrange for patients follow up appointments [with [facility]] for psychiatric care along with follow up with primary care provider. Patient will proceed with enrollment in DBT program at [facility] -Patient counseled on abstaining from recreational drugs and marijuana and alcohol. Was informed/educated on the adverse effects on their physical and ment al health. [Patient verbally agreed and understood]. [Patient was offered substance abuse treatment however declined at this time.] Patient refused any anti-craving medications for alcohol use. -Patient was instructed to return to the hospital or seek immediate medical care if their psychiatric or medical symptoms do worsen or reoccur. Allergies Allergy/AdvReac Type Severity Reaction Status Date / Time banana Allergy Anaphylaxis Verified 08/22/23 18:46 grass pollen Allergy sneezing Verified 08/22/23 18:46 mustard Allergy Anaphylaxis Verified 08/22/23 18:46 Laboratory Results WBC 9.9 k/uL (3.8-10.6) 08/22/23 19: RBC 4.69 m/uL (3.80-5.40) 08/22/23 19: Hgb 15.1 gm/dL (11.4-16.0) 08/22/23 19: Hct 43.7 % (34.0-46.0) 08/22/23 19: MCV 93.3 fL (80.0-100.0) 08/22/23: MCH 32.3 pg (25.0-35.0) 08/22/23: MCHC 34.6 g/dL (31.0-37.0) 08/22/23: RDW 11.9 % (11.5-15.5) 08/22/23: Plt Count 265 k/uL (150-450) 08/22/23 19: MPV 8.0 08/22/23 19: Neutrophils % 68 % 08/22/23 19: Lymphocytes % 22 % 08/22/23: Monocytes % 6 % 08/22/23: Eosinophils % 1 % 08/22/23: Basophils % 1 % 08/22/23: Neutrophils # 6.7 k/uL (1.3-7.7) 08/22/23 19: Lymphocytes # 2.2 k/uL (1.0-4.8) 08/22/23 19: Monocytes # 0.6 k/uL (0-1.0) 08/22/23 19: Eosinophils # 0.1 k/uL (0-0.7) 08/22/23: Basophils # 0.1 k/uL (0-0.2) 08/22/23 19: Sodium 140 mmol/L (137-145) 08/22/23 19: Potassium 3.8 mmol/L (3.5-5.1) 08/22/23 19: Chloride 105 mmol/L (98-107) 08/22/23 19: Carbon Dioxide 25 mmol/L (22-30) 01/14/24 19:29 Anion Gap 10 mmol/L 08/22/23 19:29 BUN 18 mg/dL (7-17) H 08/22/23 19:29 Creatinine 0.91 mg/dL (0.52-1.04) 08/22/23 19:29 Est GFR (CKD-EPI)AfAm >90 (>60 ml/min/1.73 sqM) 08/22/23 19:29 Est GFR (CKD-EPI)NonAf 90 (>60 ml/min/1.73 sqM) 08/22/23 19:29 Glucose 82 mg/dL (74-99) 08/22/23 19:[address] Glu mg/dL 85 mg/dL 08/25/23 10:47 Hemoglobin A1c 4.6 % (<=6.0) 08/25/23 10:47 Calcium 9.3 mg/dL (8.4-10.2) 08/22/23 19:29 Total Bilirubin 0.9 mg/dL (0.2-1.3) 08/22/23 19:29 AST 18 U/L (14-36) 08/22/23 19:29 ALT 13 U/L (4-34) 08/22/23 19:29 Alkaline Phosphatase 55 U/L (38-126) 08/22/23 19:29 Total Protein 7.1 g/dL (6.3-8.2) 08/22/23 19:29 Albumin 4.4 g/dL (3.5-5.0) 08/22/23 19:29 Triglycerides 86.40 mg/dL (0.00-149.00) 08/25/23 10:47 Cholesterol 156.00 mg/dL (0.00-200.00) 08/25/23 10:47 LDL Cholesterol, Calc 72.3 mg/dL (0.0-131.0) 08/25/23 10:47 VLDL Cholesterol, Calc 17.28 mg/dL (5.00-40.00) 08/25/23 10:47 HDL Cholesterol 66.40 mg/dL (40.00-60.00) H 08/25/23 10:47 Cholesterol/HDL Ratio 2.35 Ratio 08/25/23 10:47 TSH 3.630 mIU/L (0.465-4.680) 08/25/23 10:47 Urine Color Light Yellow 08/22/23 19:32 Urine Appearance Cloudy (Clear) H 08/22/23 19:32 Urine pH 6.0 (5.0-8.0) 08/22/23 19:32 Ur Specific Hardesty 1.025 (1.001-1.035) 08/22/23 19:32 Urine Protein Trace (Negative) H 08/22/23 19:32 Urine Glucose (UA) Negative (Negative) 08/22/23 19: Urine Ketones Negative (Negative) 08/22/23 19: Urine Blood Negative (Negative) 08/22/23 19: Urine Nitrite Negative (Negative) 08/22/23 19: Urine Bilirubin Negative (Negative) 08/22/23 19: Urine Urobilinogen <2.0 mg/dL (<2.0) 08/22/23 19:32 Ur Leukocyte Esterase Negative (Negative) 08/22/23 19:32 Urine RBC 1 /hpf (0-5) 08/22/23 19: Urine WBC 2 /hpf (0-5) 08/22/23 19:32 Ur Squamous Epith Cells 13 /hpf (0-4) H 08/22/23 19:32 Urine Bacteria Rare /hpf (None) H 08/22/23 19:32 Urine Mucus Few /hpf (None) H 08/22/23 19:32 Urine HCG, Qual Not Detected (Not Detectd) 08/22/23 19:32 Salicylates <1.0 mg/dL 08/22/23 19:29 Urine Opiates Screen Not Detected (NotDetected) 08/22/23 19:32 Ur Oxycodone Screen Not Detected (NotDetected) 08/22/23 19:32 Urine Methadone Screen Not Detected (NotDetected) 08/22/23 19:32 Acetaminophen <10.0 ug/mL 08/22/23 19:29 Ur Barbiturates Screen Not Detected (NotDetected) 08/22/23 19:32 U Tricyclic Antidepress Not Detected (NotDetected) 08/22/23 19:32 Ur Phencyclidine Scrn Not Detected (NotDetected) 08/22/23 19:32 Ur Amphetamines Screen Not Detected (NotDetected) 08/22/23 19:32 U Methamphetamines Scrn Not Detected (NotDetected) 08/22/23 19:32 U Benzodiazepines Scrn Not Detected (NotDetected) 08/22/23 19:32 [employer] 0.8 mmol/L 08/23/23 08:28 Urine Cocaine Screen Not Detected (NotDetected) 08/22/23 19:32 U Marijuana (THC) Screen Detected (NotDetected) H 08/22/23 19:32 Serum Alcohol <10 mg/dL 08/22/23 19:29 SARS-CoV-2 (PCR) Not Detected (Not Detectd) 08/23/23 18:27 Vital Signs Temp 97.4 F 08/29/23 09:10 Pulse 86 08/30/23 06:36 Resp 16 08/29/23 09:10 BP 119/70 08/30/23 06:36 Pulse Ox 99 08/25/23 07:09 FiO2 Intake & Output 08/29/23 08/30/23 08/30/23 18:59 06:59 18:59 Weight 59.6 kg Patient Condition at Discharge: Stable Plan - Discharge Summary New Discharge Prescriptions: New Ibuprofen [Motrin] 600 mg PO Q8HR PRN 30 Days #30 tab PRN Reason: Moderate Pain (Scale 4 To 6) Benzocaine 20 % Gel [Orajel] 1 applic MM BID 30 Days #1 each QUEtiapine [SEROquel] 25 mg PO HS 14 Days #14 tab Continue Testosterone [Androgel 1.62%] 2 pump TRANSDERM DAILY ARIPiprazole [Abilify] 10 mg PO DAILY 14 Days #14 tab Venlafaxine HCl [Effexor XR] 75 mg PO DAILY 14 Days #14 cap [employer] Carbonate 600 mg PO HS 14 Days #28 cap Discharge Medication List Testosterone [Androgel 1.62%] 2 pump TRANSDERM DAILY 08/22/23 [History] ARIPiprazole [Abilify] 10 mg PO DAILY 14 Days #14 tab 08/30/23 [Rx] Benzocaine 20 % Gel [Orajel] 1 applic MM BID 30 Days #1 each 08/30/23 [Rx] Ibuprofen [Motrin] 600 mg PO Q8HR PRN 30 Days #30 tab 08/30/23 [Rx] [employer] Carbonate 600 mg PO HS 14 Days #28 cap 08/30/23 [Rx] QUEtiapine [SEROquel] 25 mg PO HS 14 Days #14 tab 08/30/23 [Rx] Venlafaxine HCl [Effexor XR] 75 mg PO DAILY 14 Days #14 cap 08/30/23 [Rx] Follow up Appointment(s)/Referral(s): Aixa Martinez MD [Primary Care Provider] - 1-2 days Activity/Diet/Wound Care/Special Instructions: Avoid the use of street drugs and alcohol. Take all medications as prescribed. When you are in need of refills on your medications, please contact your medical provider and/or outpatient psychiatrist/provider to have this done. Please go to your scheduled outpatient appointment for aftercare treatment. If symptoms return or become worse, call the crisis line at and/or go to the nearest emergency room for evaluation. National Suicide Hotline 317. Discharge Disposition: HOME SELF-CARE
== END 2023-08-30 13:34 | disposition home or self-care (01) | DRG 755 ==
LOC: EC 18:33 → EDSEX 18:33 → 3MHU 08-24 15:01
PROVIDERS: ADMIT Psychiatry & Neurology Psychiatry; ATTEND Psychiatry & Neurology Psychiatry
DX: F43.29 Adjustment disorder with other symptoms (principal); F33.2 Major depressive disorder, recurrent severe without psychotic features; F60.3 Borderline personality disorder; F10.10 Alcohol abuse, uncomplicated; F12.90 Cannabis use, unspecified, uncomplicated; F64.0 Transsexualism; Z11.52 Encounter for screening for COVID-19
CPT/HCPCS: 36415; 80053; 80061; 80143; 80178; 80179; 80306; 80320; 81001; 81025; 82075; 83036; 84443; 85025; 87635; 93005; 96361; 96374; 99285

== ENCOUNTER 2024-12-09 09:30 | Emergency (ER) | payer OTHER ==
--- NOTE | 2024-12-09 09:47 | ED ---
Nausea/Vomiting/Diarrhea HPI - General Chief complaint: Nausea/Vomiting/Diarrhea Stated complaint: vomiting Time Seen by Provider: 12/09/24 09:45 Source: patient, family, RN notes reviewed Mode of arrival: ambulatory Limitations: no limitations - History of Present Illness Initial comments: 24-year-old born female presenting to the ER for evaluation of nausea, vomiting and diarrhea. Patient reports since 3 AM they have been having continuous nausea, vomiting and diarrhea. They have attempted to consume a small amount of Gatorade and immediately threw up for 3 minutes straight after consumption. Patient also was endorsing epigastric abdominal discomfort. Stating it is a cramping abdominal discomfort radiating to lower quadrants. Patient has not taken anything for symptoms at this time. Patient reports she has been worked up outpatient for GI issues but has not been diagnosed with everything. Patient does smoke marijuana last consumption 2 days ago. Denies any fevers, chills, chest pain, shortness of breath, urinary complaints. Patient reports household members have had similar symptoms recently. No prior abdominal surgeries. No history of ulcerative colitis or Crohn's disease. - Related Data Home Medications Medication Instructions Recorded Confirmed Testosterone [Androgel 1.62%] 2 pump TRANSDERM DAILY 08/22/23 08/22/23 Previous Rx's Medication Instructions Recorded ARIPiprazole [Abilify] 10 mg PO DAILY 14 Days #14 tab 08/30/23 Benzocaine 20 % Gel [Orajel] 1 applic MM BID 30 Days #1 each 08/30/23 Ibuprofen [Motrin] 600 mg PO Q8HR PRN 30 Days #30 tab 08/30/23 [place] Carbonate 600 mg PO HS 14 Days #28 cap 08/30/23 QUEtiapine [SEROquel] 25 mg PO HS 14 Days #14 tab 08/30/23 Venlafaxine HCl [Effexor XR] 75 mg PO DAILY 14 Days #14 cap 08/30/23 Ondansetron Odt [Zofran Odt] 4 mg PO Q8HR PRN #10 tab 12/09/24 Famotidine [Pepcid] 20 mg PO BID #14 tablet 12/11/24 Metoclopramide [Reglan] 10 mg PO TID PRN #15 tab 12/11/24 Allergies Allergy/AdvReac Type Severity Reaction Status Date / Time banana Allergy Anaphylaxis Verified 12/11/24 08:26 grass pollen Allergy sneezing Verified 12/11/24 08:26 mustard Allergy Anaphylaxis Verified 12/11/24 08:26 Review of Systems ROS Statement: Those systems with pertinent positive or pertinent negative responses have been documented in the HPI. ROS Other: All systems not noted in ROS Statement are negative. Past Medical History Past Medical History: Seizure Disorder Additional Past Medical History / Comment(s): Bipolar. Obstetric history: First was a spontaneous . This is her second . Blood type A+, antibodies negative, HIV nonreactive, rubella immune, RPR nonreactive. Hepatitis B negative, negative quad screen, negative toxoplasmosis. History of Any Multi-Drug Resistant Organisms: None Reported Past Surgical History: No Surgical Hx Reported Past Anesthesia/Blood Transfusion Reactions: No Reported Reaction Past Psychological History: ADD/ADHD, Anxiety, Bipolar Smoking Status: Never smoker Past Alcohol Use History: None Reported Past Drug Use History: Marijuana - Past Family History Mother Family Medical History: No Reported History General Exam Limitations: no limitations General appearance: alert, in no apparent distress Respiratory exam: Present: normal lung sounds bilaterally. Absent: respiratory distress, wheezes, rales, rhonchi, stridor Cardiovascular Exam: Present: regular rate, normal rhythm, normal heart sounds. Absent: systolic murmur, diastolic murmur, rubs, gallop, clicks GI/Abdominal exam: Present: soft, tenderness (RUQ/epigastric), normal bowel sounds Neurological exam: Present: alert, oriented X3, CN II-XII intact Skin exam: Present: warm, dry, intact, normal color. Absent: rash Course Vital Signs 12/09/24 12/09/24 12/09/24 09:32 10:35 12:00 Temperature 97.3 F 97.9 F 98 F Pulse Rate 72 70 61 Respiratory 18 16 18 Rate Blood Pressure 107/68 107/78 O2 Sat by Pulse 99 100 98 Oximetry 12/09/24 13:05 Temperature 98 F Pulse Rate 64 Respiratory 18 Rate Blood Pressure 110/79 O2 Sat by Pulse 98 Oximetry Medical Decision Making - Medical Decision Making Was pt. sent in by a medical professional or institution (, PA, CHIP BIN OPERATOR, urgent care, hospital, or care home...) When possible be specific @ -No Did you speak to anyone other than the patient for history (EMS, parent, family, police, friend...)? What history was obtained from this source @ -No Did you review nursing and triage notes (agree or disagree)? Why? @ -I reviewed and agree with nursing and triage notes Were old charts reviewed (outside hosp., previous admission, EMS record, old EKG, old radiological studies, urgent care reports/EKG's, care home records)? Report findings @ -No old charts were reviewed Differential Diagnosis (chest pain, altered mental status, abdominal pain women, abdominal pain men, vaginal bleeding, weakness, fever, dyspnea, syncope, headache, dizziness, GI bleed, back pain, seizure, CVA, palpatations, mental health, musculoskeletal)? @ -Viral illness, , hyperemesis, cholecystitis... This list is not meant to be all-inclusive EKG interpreted by me (3pts min.). @ -None done X-rays interpreted by me (1pt min.). @ -None done CT interpreted by me (1pt min.). @ -None done U/S interpreted by me (1pt. min.). @ -Gallbladder US negative for acute process. CBD 0.36 cm. What testing was considered but not performed or refused? (CT, X-rays, U/S, labs)? Why? @ -None What meds were considered but not given or refused? Why? @ -None Did you discuss the management of the patient with other professionals (professionals i.e. , PA, CHIP BIN OPERATOR, lab, RT, psych nurse, pediatric social worker, graduate student, teacher, production officer, director of casework services)? Give summary @ -No Was smoking cessation discussed for >3mins.? @ -No Was critical care preformed (if so, how long)? @ -No Were there social determinants of health that impacted care today? How? (Homelessness, low income, unemployed, alcoholism, drug addiction, transportation, low edu. Level, literacy, decrease access to med. care, half-way, rehab)? @ -No Was there de-escalation of care discussed even if they declined (Discuss DNR or withdrawal of care, Hospice)? DNR status @ -No What co-morbidities impacted this encounter? (DM, HTN, Smoking, COPD, CAD, Cancer, CVA, ARF, Chemo, Hep., AIDS, mental health diagnosis, sleep apnea, morbid obesity)? @ -Marijuana use Was patient admitted / discharged? Hospital course, mention meds given and route, prescriptions, significant lab abnormalities, going to OR and other pe rtinent info. @ -Discharged. 24 born female presenting to the ER for evaluation of nausea and vomiting since 3am. Upon arrival vitals within acceptable limits. During examination patient is actively dry heaving. Abdominal exam remarkable for right upper quadrant/epigastric abdominal tenderness. Laboratory studies along with gallbladder ultrasound will be obtained. Laboratory studies significant for WBC of 14.3 with a left shift likely reactive from emesis. Total bilirubin elevated 2.3 AST, ALT and alk phos within normal limits. Urinalysis with 4+ ketones likely from dehydration patient did receive IV fluids. THC positive. Viral swabs negative. Gallbladder ultrasound negative. Symptomatic treatment with Zofran, Toradol and Pepcid. Upon reevaluation, patient resting comfortably in exam room no signs of acute distress. No reoccurring bouts of emesis. Patient requesting crackers which were provided and patient tolerated p.o. I recommended cessation of marijuana use. They will be discharged in stable condition with follow-up to PCP. Zofran prescribed. Return parameters di scussed. Patient verbally expressed understanding agreement with care plan. Case discussed with ED attending, Dr. Blalesteros. Undiagnosed new problem with uncertain prognosis? @ -No Drug Therapy requiring intensive monitoring for toxicity (Heparin, Nitro, Insulin, Cardizem)? @ -No Were any procedures done? @ -No Diagnosis/symptom? @ -Nausea and vomiting Acute, or Chronic, or Acute on Chronic? @ -Acute Uncomplicated (without systemic symptoms) or Complicated (systemic symptoms)? @ -Uncomplicated Side effects of treatment? @ -No Exacerbation, Progression, or Severe Exacerbation? @ -No Poses a threat to life or bodily function? How? (Chest pain, [place], AL, pneumonia, PE, COPD, DKA, ARF, appy, cholecystitis, CVA, Diverticulitis, Homicidal, Suicidal, threat to staff... and all critical care pts) @ -No - Lab Data Result diagrams: 12/09/24 09:51 12/09/24 09:51 Lab Results 12/09/24 12/09/24 12/09/24 Range/Units 09:51 09:51 09:51 WBC 14.35 H (4.50-10.00) 10*3/uL RBC 4.94 (4.10-5.60) 10*6/uL Hgb 15.8 (12.0-17.0) g/dL Hct 44.8 (37.2-50.0) % MCV 90.7 (80.0-97.0) fL MCH 32.0 (27.0-32.0) pg MCHC 35.3 (32.0-37.0) g/dL Plt Count 268 (140-440) 10*3/uL MPV 10.9 (9.5-12.2) fL Immature Gran % (Auto) 0.2 % Neutrophils % 87.1 % Lymphocytes % 6.0 % Monocytes % 6.0 % Eosinophils % 0.3 % Basophils % 0.4 % Immature Gran # 0.03 (0.00-0.04) 10*3/uL Neutrophils # 12.49 H (1.80-7.70) 10*3/uL Lymphocytes # 0.86 L (0.90-5.00) 10*3/uL Monocytes # 0.86 (0.20-1.00) 10*3/uL Eosinophils # 0.05 (0.04-0.35) 10*3/uL Basophils # 0.06 (0.00-0.10) 10*3/uL Sodium 141 (137-145) mmol/L Potassium 4.4 (3.5-5.1) mmol/L Chloride 105 (98-107) mmol/L Carbon Dioxide 20 L (22-30) mmol/L Anion Gap 16 mmol/L BUN 15 (9-20) mg/dL Creatinine 0.59 L (0.66-1.25) mg/dL Est GFR (CKD-EPI)AfAm >90 (>60 ml/min/1.73 sqM) Est GFR (CKD-EPI)NonAf >90 (>60 ml/min/1.73 sqM) Glucose 147 H (74-99) mg/dL Plasma Lactic Acid Andres 1.4 (0.7-2.0) mmol/L Calcium 10.2 (8.4-10.2) mg/dL Total Bilirubin 2.3 H (0.2-1.3) mg/dL AST 26 (17-59) U/L ALT 16 (4-49) U/L Alkaline Phosphatase 58 (38-126) U/L Total Protein 8.2 (6.3-8.2) g/dL Albumin 5.3 H (3.5-5.0) g/dL Lipase 74 (23-300) U/L Urine Color Urine Appearance (Clear) Urine pH (5.0-8.0) Ur Specific [place] (1.001-1.035) Urine Protein (Negative) Urine Glucose (UA) (Negative) Urine Ketones (Negative) Urine Blood (Negative) Urine Nitrite (Negative) Urine Bilirubin (Negative) Urine Urobilinogen (<2.0) mg/dL Ur Leukocyte Esterase (Negative) Urine RBC (0-5) /hpf Urine WBC (0-5) /hpf Ur Squamous Epith Cells (0-4) /hpf Urine Bacteria (None) /hpf Hyaline Casts (0-2) /lpf Urine Mucus (None) /hpf Urine HCG, Qual (Not Detectd) Urine Opiates Screen (NotDetected) Ur Oxycodone Screen (NotDetected) Urine Methadone Screen (NotDetected) Ur Barbiturates Screen (NotDetected) U Tricyclic Antidepress (NotDetected) Ur Phencyclidine Scrn (NotDetected) Ur Amphetamines Screen (NotDetected) U Methamphetamines Scrn (NotDetected) U Benzodiazepines Scrn (NotDetected) Urine Cocaine Screen (NotDetected) U Marijuana (THC) Screen (NotDetected) Influenza Type A (PCR) (Not Detectd) Influenza Type B (PCR) (Not Detectd) RSV (PCR) (Not Detectd) SARS-CoV-2 (PCR) (Not Detectd) 12/09/24 12/09/24 12/09/24 Range/Units 09:51 11:09 11:09 WBC (4.50-10.00) 10*3/uL RBC (4.10-5.60) 10*6/uL Hgb (12.0-17.0) g/dL Hct (37.2-50.0) % MCV (80.0-97.0) fL MCH (27.0-32.0) pg MCHC (32.0-37.0) g/dL Plt Count (140-440) 10*3/uL MPV (9.5-12.2) fL Immature Gran % (Auto) % Neutrophils % % Lymphocytes % % Monocytes % % Eosinophils % % Basophils % % Immature Gran # (0.00-0.04) 10*3/uL Neutrophils # (1.80-7.70) 10*3/uL Lymphocytes # (0.90-5.00) 10*3/uL Monocytes # (0.20-1.00) 10*3/uL Eosinophils # (0.04-0.35) 10*3/uL Basophils # (0.00-0.10) 10*3/uL Sodium (137-145) mmol/L Potassium (3.5-5.1) mmol/L Chloride (98-107) mmol/L Carbon Dioxide (22-30) mmol/L Anion Gap mmol/L BUN (9-20) mg/dL Creatinine (0.66-1.25) mg/dL Est GFR (CKD-EPI)AfAm (>60 ml/min/1.73 sqM) Est GFR (CKD-EPI)NonAf (>60 ml/min/1.73 sqM) Glucose (74-99) mg/dL Plasma Lactic Acid Andres (0.7-2.0) mmol/L Calcium (8.4-10.2) mg/dL Total Bilirubin (0.2-1.3) mg/dL AST (17-59) U/L ALT (4-49) U/L Alkaline Phosphatase (38-126) U/L Total Protein (6.3-8.2) g/dL Albumin (3.5-5.0) g/dL Lipase (23-300) U/L Urine Color Yellow Urine Appearance Cloudy (Clear) Urine pH 6.0 (5.0-8.0) Ur Specific [place] 1.030 (1.001-1.035) Urine Protein 1+ H (Negative) Urine Glucose (UA) Negative (Negative) Urine Ketones 4+ H (Negative) Urine Blood Negative (Negative) Urine Nitrite Negative (Negative) Urine Bilirubin Negative (Negative) Urine Urobilinogen <2.0 (<2.0) mg/dL Ur Leukocyte Esterase Trace H (Negative) Urine RBC 1 (0-5) /hpf Urine WBC 3 (0-5) /hpf Ur Squamous Epith Cells 11 H (0-4) /hpf Urine Bacteria Rare H (None) /hpf Hyaline Casts 1 (0-2) /lpf Urine Mucus Many (None) /hpf Urine HCG, Qual Not Detected (Not Detectd) Urine Opiates Screen Not Detected (NotDetected) Ur Oxycodone Screen Not Detected (NotDetected) Urine Methadone Screen Not Detected (NotDetected) Ur Barbiturates Screen Not Detected (NotDetected) U Tricyclic Antidepress Not Detected (NotDetected) Ur Phencyclidine Scrn Not Detected (NotDetected) Ur Amphetamines Screen Not Detected (NotDetected) U Methamphetamines Scrn Not Detected (NotDetected) U Benzodiazepines Scrn Not Detected (NotDetected) Urine Cocaine Screen Not Detected (NotDetected) U Marijuana (THC) Screen Detected H (NotDetected) Influenza Type A (PCR) Not Detected (Not Detectd) Influenza Type B (PCR) Not Detected (Not Detectd) RSV (PCR) Not Detected (Not Detectd) SARS-CoV-2 (PCR) Not Detected (Not Detectd) - Radiology Data Radiology results: report reviewed, image reviewed Disposition Clinical Impression: Nausea & vomiting Disposition: HOME SELF-CARE Condition: Stable Instructions (If sedation given, give patient instructions): Acute Nausea and Vomiting (ED) Additional Instructions: You may take Zofran as prescribed every 8 hours for nausea. Follow-up with PCP. Highly recommend you stop marijuana use. Return to the ER for any new or worsening concerns. Prescriptions: Ondansetron Odt [Zofran Odt] 4 mg PO Q8HR PRN #10 tab PRN Reason: Nausea Is patient prescribed a controlled substance at d/c from ED?: No Referrals: Aixa Martinez MD [Primary Care Provider] - 1-2 days Time of Disposition: 12:41
[2024-12-09] MEDS: SODIUM CHLORIDE 0.9% 1,000 ML IV STA (09:54)
[2024-12-09] MEDS: ONDANSETRON 4 MG/2 ML VIAL IVP STA (09:55)
[2024-12-09] MEDS: FAMOTIDINE 20 MG/2 ML VIAL IV STA (09:55)
[2024-12-09 10:04] LABS: Basophils # (A) 0.06 10*3/uL (0.00-0.10); Basophils % (A) 0.4 %; Eosinophils # (A) 0.05 10*3/uL (0.04-0.35); Eosinophils % (A) 0.3 %; HCT 44.8 % (37.2-50.0); HGB 15.8 g/dL (12.0-17.0); Lymphocytes # (A) 0.86 10*3/uL (0.90-5.00); MCHC 35.3 g/dL (32.0-37.0); MCV 90.7 fL (80.0-97.0); Mean Platelet Volume 10.9 fL (9.5-12.2); Monocytes # (A) 0.86 10*3/uL (0.20-1.00); Neutrophils # (A) 12.49 10*3/uL (1.80-7.70); Neutrophils % (A) 87.1 %; Platelet Count 268 10*3/uL (140-440); RBC 4.94 10*6/uL (4.10-5.60); RDW 11.7 % (11.5-14.5); WBC 14.35 10*3/uL (4.50-10.00)
[2024-12-09 10:19] LABS: ALT 16 U/L (4-49); African American GFR (CKD) >90 (>60 ml/min/1.73 sqM); Albumin 5.3 g/dL (3.5-5.0); Anion Gap 16 mmol/L; Blood Urea Nitrogen 15 mg/dL (9-20); Calcium 10.2 mg/dL (8.4-10.2); Carbon Dioxide 20 mmol/L (22-30); Chloride 105 mmol/L (98-107); Glucose 147 mg/dL (74-99); Lipase 74 U/L (23-300); Non-African American GFR(CKD) >90 (>60 ml/min/1.73 sqM); Sodium 141 mmol/L (137-145); Total Bilirubin 2.3 mg/dL (0.2-1.3); Total Protein 8.2 g/dL (6.3-8.2)
[2024-12-09 10:23] LABS: AST 26 U/L (17-59); Alkaline Phosphatase 58 U/L (38-126); Potassium 4.4 mmol/L (3.5-5.1)
[2024-12-09 10:39] LABS: Influenza A Not Detected (Not Detectd); Influenza B Not Detected (Not Detectd); RSV Not Detected (Not Detectd)
[2024-12-09] MEDS: SODIUM CHLORIDE 0.9% 500 ML 500 ML IV ONE (11:05)
[2024-12-09] MEDS: KETOROLAC 15 MG/ML 1 ML VIAL IVP STA (11:05)
[2024-12-09 11:40] LABS: Appearance,Urine Cloudy (Clear); Bacteria,Urine Rare /hpf; Bilirubin,Urine Negative (Negative); Blood,Urine Negative (Negative); Color,Urine Yellow; Glucose,Urine (UA) Negative (Negative); Hyaline Casts,Urine 1 /lpf (0-2); Ketones,Urine 4+ (Negative); Leukocyte Esterase,Urine Trace (Negative); Mucus,Urine Many /hpf; Nitrite,Urine Negative (Negative); Protein,Urine 1+ (Negative); RBC,Urine 1 /hpf (0-5); Squamous Epithelial Cell,Urine 11 /hpf (0-4); Urobilinogen,Urine <2.0 mg/dL (<2.0); WBC,Urine 3 /hpf (0-5)
[2024-12-09 11:58] LABS: Urn Cannabinoid Scrn Detected (NotDetected)
[2024-12-09 11:59] LABS: Amphetamine Screen,Urine Not Detected (NotDetected); Barbiturate Screen,Urine Not Detected (NotDetected); Benzodiazepines Screen,Urine Not Detected (NotDetected); Cocaine Screen,Urine Not Detected (NotDetected); Methadone Screen, Urine Not Detected (NotDetected); Opiate Screen,Urine Not Detected (NotDetected); Oxycodone Screen, Urine Not Detected (NotDetected); Phencyclidine Screen,Urine Not Detected (NotDetected); Tricyclic Antidepressant,Urine Not Detected (NotDetected)
[2024-12-09 12:19] VITALS: RESP 18; TEMP 98
--- NOTE | 2024-12-09 12:23 | US ---
EXAMINATION TYPE: US gallbladder DATE OF EXAM: 12/09/2024 COMPARISON: CT 2018 CLINICAL INDICATION: Unknown, 24 years old with history of N/V epigastric pain; Pain started this mor alejandro TECHNIQUE: Grayscale and color Doppler imaging of the right upper quadrant. FINDINGS: EXAM MEASUREMENTS: Liver Length: 15.7 cm Gallbladder Wall: 0.24 cm CBD: 0.36 cm, color Doppler imaging was utilized to isolate the common bile duct for measurement. Right Kidney: 11.1 x 5.2 x 4.1 cm [employer] NOTES: Exam is limited due to overlying bowel gas Pancreas: Limited, no abnormalities seen. Portion of head and tail were obscured Liver: No abnormalities seen Gallbladder: wnl Evidence for sonographic Garcia's sign: *Pt has pain throughout entire exam CBD: wnl Right Kidney: wnl The visualized portions of the pancreas unremarkable. The liver demonstrates no focal lesion or servi ce nodularity. Gallbladder demonstrates no gallstones, wall thickening or surrounding fluid. Patient reports pain throughout the entire exam. Common bile duct is within normal limits. Right kidney demon strates no hydronephrosis, nephrolithiasis, or solid mass. IMPRESSION: No ultrasound evidence for acute process. [facility], , 12/09/2024 12:20 PM
[2024-12-09 13:06] VITALS: BP 110/79; PULSE 64
== END 2024-12-09 13:16 | disposition home or self-care (01) ==
LOC: EC 09:30
DX: R11.2 Nausea with vomiting, unspecified (principal); F12.90 Cannabis use, unspecified, uncomplicated; Z91.018 Allergy to other foods; Z88.8 Allergy status to other drugs, medicaments and biological substances; Z11.52 Encounter for screening for COVID-19
CPT/HCPCS: 36415; 80053; 83605; 83690; 85025; 81001; 81025; 80306; 87636; 76705; 99284; 96374; 96375 ×2; 96361 ×2; J2405; J1885; J1308

== ENCOUNTER 2024-12-11 08:22 | Emergency (ER) | payer OTHER ==
[2024-12-11 08:26] VITALS: TEMP 98.2
[2024-12-11] MEDS: SODIUM CHLORIDE 0.9% 2,000 ML IV STA (08:54)
[2024-12-11] MEDS: PANTOPRAZOLE 40 MG/10 ML VIAL IVP STA (08:55)
[2024-12-11 08:56] LABS: Basophils # (A) 0.05 10*3/uL (0.00-0.10); Basophils % (A) 0.6 %; HGB 15.6 g/dL (12.0-17.0); Lymphocytes # (A) 1.31 10*3/uL (0.90-5.00); Lymphocytes % (A) 14.6 %; MCH 32.5 pg (27.0-32.0); MCHC 36.3 g/dL (32.0-37.0); MCV 89.6 fL (80.0-97.0); Mean Platelet Volume 11.1 fL (9.5-12.2); Monocytes % (A) 12.3 %; Neutrophils # (A) 6.45 10*3/uL (1.80-7.70); Neutrophils % (A) 72.1 %; Platelet Count 258 10*3/uL (140-440); RDW 11.6 % (11.5-14.5); WBC 8.95 10*3/uL (4.50-10.00)
[2024-12-11] MEDS: droPERidol 5 MG/2 ML VIAL IVP ONE (08:56)
[2024-12-11 09:08] LABS: Appearance,Urine Cloudy (Clear); Bacteria,Urine Rare /hpf; Bilirubin,Urine Negative (Negative); Blood,Urine Negative (Negative); Color,Urine Yellow; Glucose,Urine (UA) Negative (Negative); Ketones,Urine 4+ (Negative); Leukocyte Esterase,Urine Negative (Negative); Mucus,Urine Few /hpf; Nitrite,Urine Negative (Negative); PH, Urine 6.5 (5.0-8.0); Protein,Urine Trace (Negative); RBC,Urine 1 /hpf (0-5); Squamous Epithelial Cell,Urine 10 /hpf (0-4); WBC,Urine 2 /hpf (0-5)
[2024-12-11 09:12] LABS: ALT 29 U/L (4-49); AST 30 U/L (17-59); African American GFR (CKD) >90 (>60 ml/min/1.73 sqM); Alkaline Phosphatase 54 U/L (38-126); Anion Gap 17 mmol/L; Blood Urea Nitrogen 17 mg/dL (9-20); Carbon Dioxide 23 mmol/L (22-30); Chloride 102 mmol/L (98-107); Glucose 101 mg/dL (74-99); Lipase 44 U/L (23-300); Magnesium 1.8 mg/dL (1.6-2.3); Non-African American GFR(CKD) >90 (>60 ml/min/1.73 sqM); Potassium 3.6 mmol/L (3.5-5.1); Sodium 142 mmol/L (137-145); Total Bilirubin 1.8 mg/dL (0.2-1.3); Total Protein 7.9 g/dL (6.3-8.2)
--- NOTE | 2024-12-11 10:08 | ED ---
Nausea/Vomiting/Diarrhea HPI - General Chief complaint: Nausea/Vomiting/Diarrhea Stated complaint: vomiting blood Time Seen by Provider: 12/11/24 08:28 Source: patient, RN notes reviewed Mode of arrival: ambulatory Limitations: no limitations - History of Present Illness Initial comments: 24-year-old patient presents emergency department with complaint of nausea vomiting. Patient states that significant symptoms for several days was recently seen in the emergency department and felt better but went home and felt worse after eating again. Patient denies any chest pain no headache it is no fevers or chills no other associated symptoms. - Related Data Home Medications Medication Instructions Recorded Confirmed Testosterone [Androgel 1.62%] 2 pump TRANSDERM DAILY 08/22/23 08/22/23 Previous Rx's Medication Instructions Recorded ARIPiprazole [Abilify] 10 mg PO DAILY 14 Days #14 tab 08/30/23 Benzocaine 20 % Gel [Orajel] 1 applic MM BID 30 Days #1 each 08/30/23 Ibuprofen [Motrin] 600 mg PO Q8HR PRN 30 Days #30 tab 08/30/23 Cabool Carbonate 600 mg PO HS 14 Days #28 cap 08/30/23 QUEtiapine [SEROquel] 25 mg PO HS 14 Days #14 tab 08/30/23 Venlafaxine HCl [Effexor XR] 75 mg PO DAILY 14 Days #14 cap 08/30/23 Ondansetron Odt [Zofran Odt] 4 mg PO Q8HR PRN #10 tab 12/09/24 Famotidine [Pepcid] 20 mg PO BID #14 tablet 12/11/24 Metoclopramide [Reglan] 10 mg PO TID PRN #15 tab 12/11/24 Allergies Allergy/AdvReac Type Severity Reaction Status Date / Time banana Allergy Anaphylaxis Verified 12/11/24 08:26 grass pollen Allergy sneezing Verified 12/11/24 08:26 mustard Allergy Anaphylaxis Verified 12/11/24 08:26 Review of Systems ROS Statement: Those systems with pertinent positive or pertinent negative responses have been documented in the HPI. ROS Other: All systems not noted in ROS Statement are negative. Past Medical History Past Medical History: Seizure Disorder Additional Past Medical History / Comment(s): Bipolar. Obstetric history: First was a spontaneous . This is her second . Blood type A+, antibodies negative, HIV nonreactive, rubella immune, RPR nonreactive. Hepatitis B negative, negative quad screen, negative toxoplasmosis. History of Any Multi-Drug Resistant Organisms: None Reported Past Surgical History: No Surgical Hx Reported Past Anesthesia/Blood Transfusion Reactions: No Reported Reaction Past Psychological History: ADD/ADHD, Anxiety, Bipolar Smoking Status: Never smoker Past Alcohol Use History: None Reported Past Drug Use History: Marijuana - Past Family History Mother Family Medical History: No Reported History General Exam Limitations: no limitations General appearance: alert, in no apparent distress Head exam: Present: atraumatic, normocephalic, normal inspection Eye exam: Present: normal appearance, PERRL, EOMI. Absent: scleral icterus, conjunctival injection, periorbital swelling ENT exam: Present: normal exam, normal oropharynx, mucous membranes moist Neck exam: Present: normal inspection, full ROM. Absent: tenderness, meningismus, lymphadenopathy Respiratory exam: Present: normal lung sounds bilaterally. Absent: respiratory distress, wheezes, rales, rhonchi, stridor Cardiovascular Exam: Present: regular rate, normal rhythm, normal heart sounds. Absent: systolic murmur, diastolic murmur, rubs, gallop, clicks GI/Abdominal exam: Present: soft, normal bowel sounds. Absent: distended, tenderness, guarding, rebound, rigid Course Vital Signs 12/11/24 08:23 Temperature 98.2 F Pulse Rate 58 Respiratory 17 Rate Blood Pressure 130/81 O2 Sat by Pulse 99 Oximetry Medical Decision Making - Medical Decision Making Was pt. sent in by a medical professional or institution (, PA, SPACE CONTROL SUPERVISOR, urgent care, hospital, or fci...) When possible be specific @ -No Did you speak to anyone other than the patient for history (EMS, parent, family, police, friend...)? What history was obtained from this source @ -No Did you review nursing and triage notes (agree or disagree)? Why? @ -I reviewed and agree with nursing and triage notes Were old charts reviewed (outside hosp., previous admission, EMS record, old EKG, old radiological studies, urgent care reports/EKG's, fci records)? Report findings @ -No old charts were reviewed Differential Diagnosis (chest pain, altered mental status, abdominal pain women, abdominal pain men, vaginal bleeding, weakness, fever, dyspnea, syncope, heada katerine, dizziness, GI bleed, back pain, seizure, CVA, palpatations, mental health, musculoskeletal)? @ -Differential Abdominal Pain Women: Appendicitis, Cholecystitis, diverticulosis, ischemic bowel, pancreatitis, hepatitis, UTI, gastroenteritis, AAA, incarcerated hernia, bowel obstruction, constipation, inflammatory bowel, hepatitis, peptic ulcer disease, splenic infarction, perforated viscus, vulvitis, ovarian torsion, PID, kidney stone, placenta abruption, this is not meant to be an all-inclusive list EKG interpreted by me (3pts min.). @ -None X-rays interpreted by me (1pt min.). @ -None done CT interpreted by me (1pt min.). @ -None done U/S interpreted by me (1pt. min.). @ -None done What testing was considered but not performed or refused? (CT, X-rays, U/S, labs)? Why? @ -None What meds were considered but not given or refused? Why? @ -None Did you discuss the management of the patient with other professionals (professionals i.e. , PA, SPACE CONTROL SUPERVISOR, lab, RT, psych nurse, social media editor, instructor programmable controllers, teacher, booking officer, case fitter)? Give summary @ -No Was smoking cessation discussed for >3mins.? @ -No Was critical care preformed (if so, how long)? @ -No Were there social determinants of health that impacted care today? How? (Homelessness, low income, unemployed, alcoholism, drug addiction, transportation, low edu. Level, literacy, decrease access to med. care, fdc, rehab)? @ -No Was there de-escalation of care discussed even if they declined (Discuss DNR or withdrawal of care, Hospice)? DNR status @ -No What co-morbidities impacted this encounter? (DM, HTN, Smoking, COPD, CAD, Cancer, CVA, ARF, Chemo, Hep., AIDS, mental health diagnosis, sleep apnea, morbid obesity)? @ -None Was patient admitted / discharged? Hospital course, mention meds given and route, prescriptions, significant lab abnormalities, going to OR and other pertinent info. @ -Discharge patient feels greatly improved is tolerating oral intake patient does have dehydration was given 2 L of fluid. Patient comfortable discharge and close follow-up return parameters oneyda. Undiagnosed new problem with uncertain prognosis? @ -No Drug Therapy requiring intensive monitoring for toxicity (Heparin, Nitro, Ins ulin, Cardizem)? @ -No Were any procedures done? @ -No Diagnosis/symptom? @ -Nausea vomiting dehydration Acute, or Chronic, or Acute on Chronic? @ -Acute Uncomplicated (without systemic symptoms) or Complicated (systemic symptoms)? @ -Uncomplicated Side effects of treatment? @ -No Exacerbation, Progression, or Severe Exacerbation? @ -No Poses a threat to life or bodily function? How? (Chest pain, USA, DC, pneumonia, PE, COPD, DKA, ARF, appy, cholecystitis, CVA, Diverticulitis, Homicidal, Suicidal, threat to staff... and all critical care pts) @ -No - Lab Data Result diagrams: 12/11/24 08:48 12/11/24 08:48 Lab Results 12/11/24 12/11/24 12/11/24 Range/Units 08:48 08:48 08:48 WBC 8.95 (4.50-10.00) 10*3/uL RBC 4.80 (4.10-5.60) 10*6/uL Hgb 15.6 (12.0-17.0) g/dL Hct 43.0 (37.2-50.0) % MCV 89.6 (80.0-97.0) fL MCH 32.5 H (27.0-32.0) pg MCHC 36.3 (32.0-37.0) g/dL Plt Count 258 (140-440) 10*3/uL MPV 11.1 (9.5-12.2) fL Immature Gran % (Auto) 0.4 % Neutrophils % 72.1 % Lymphocytes % 14.6 % Monocytes % 12.3 % Eosinophils % 0.0 % Basophils % 0.6 % Immature Gran # 0.04 (0.00-0.04) 10*3/uL Neutrophils # 6.45 (1.80-7.70) 10*3/uL Lymphocytes # 1.31 (0.90-5.00) 10*3/uL Monocytes # 1.10 H (0.20-1.00) 10*3/uL Eosinophils # 0.00 L (0.04-0.35) 10*3/uL Basophils # 0.05 (0.00-0.10) 10*3/uL Sodium 142 (137-145) mmol/L Potassium 3.6 (3.5-5.1) mmol/L Chloride 102 (98-107) mmol/L Carbon Dioxide 23 (22-30) mmol/L Anion Gap 17 mmol/L BUN 17 (9-20) mg/dL Creatinine 0.58 L (0.66-1.25) mg/dL Est GFR (CKD-EPI)AfAm >90 (>60 ml/min/1.73 sqM) Est GFR (CKD-EPI)NonAf >90 (>60 ml/min/1.73 sqM) Glucose 101 H (74-99) mg/dL Calcium 10.0 (8.4-10.2) mg/dL Magnesium 1.8 (1.6-2.3) mg/dL Total Bilirubin 1.8 H (0.2-1.3) mg/dL AST 30 (17-59) U/L ALT 29 (4-49) U/L Alkaline Phosphatase 54 (38-126) U/L Total Protein 7.9 (6.3-8.2) g/dL Albumin 5.0 (3.5-5.0) g/dL Lipase 44 (23-300) U/L Urine Color Yellow Urine Appearance Cloudy (Clear) Urine pH 6.5 (5.0-8.0) Ur Specific [place] 1.030 (1.001-1.035) Urine Protein Trace H (Negative) Urine Glucose (UA) Negative (Negative) Urine Ketones 4+ H (Negative) Urine Blood Negative (Negative) Urine Nitrite Negative (Negative) Urine Bilirubin Negative (Negative) Urine Urobilinogen 4.0 (<2.0) mg/dL Ur Leukocyte Esterase Negative (Negative) Urine RBC 1 (0-5) /hpf Urine WBC 2 (0-5) /hpf Ur Squamous Epith Cells 10 H (0-4) /hpf Urine Bacteria Rare H (None) /hpf Urine Mucus Few (None) /hpf Disposition Clinical Impression: Nausea & vomiting Disposition: HOME SELF-CARE Condition: Stable Instructions (If sedation given, give patient instructions): Acute Nausea and Vomiting (ED) Additional Instructions: Please return to the Emergency Department if symptoms worsen or any other concerns. Prescriptions: Famotidine [Pepcid] 20 mg PO BID #14 tablet Metoclopramide [Reglan] 10 mg PO TID PRN #15 tab PRN Reason: Nausea Is patient prescribed a controlled substance at d/c from ED?: No Referrals: Aixa Martinez MD [Primary Care Provider] - 1-2 days Time of Disposition: 10:08
[2024-12-11 10:10] VITALS: BP 105/66; PULSE 75; RESP 18
== END 2024-12-11 10:27 | disposition home or self-care (01) ==
LOC: EC 08:22
DX: R11.2 Nausea with vomiting, unspecified (principal); Z91.018 Allergy to other foods; Z88.8 Allergy status to other drugs, medicaments and biological substances
CPT/HCPCS: 36415; 80053; 83690; 83735; 85025; 81001; 99284; 96374; 96375; J1790; J2470